=== PATIENT | male | born 1960 | race Caucasian/White ===

== ENCOUNTER 2017-05-11 02:00 | Inpatient (IN) | payer OTHER ==
[2017-05-11] MEDS: SOD CHLORIDE 0.9% 1,000 ML IV (03:29)
[2017-05-11] MEDS ORDERED: HYDROmorphONE 0.5 MG/0.5 ML SYG IV (03:30)
[2017-05-11] MEDS ORDERED: DOCUSATE SODIUM 100 MG CAP PO (03:30)
[2017-05-11] MEDS ORDERED: BISACODYL (EC) 5 MG TAB PO (03:30)
[2017-05-11] MEDS ORDERED: ONDANSETRON 4 MG INJ IV (03:30)
[2017-05-11] MEDS ORDERED: HYDROCODONE/APAP (5/325) TAB PO (03:30)
[2017-05-11] MEDS ORDERED: ACETAMINOPHEN 325 MG TAB PO (03:30)
[2017-05-11] MEDS ORDERED: HEPARIN 1000 UNITS/ML 10 ML INJ IV (04:00)
[2017-05-11] MEDS: SOD CHLORIDE 0.9% 250 ML IV* (04:35)
[2017-05-11] MEDS: FUROSEMIDE 20 MG INJ IV ×2 (05:00→14:00)
[2017-05-11] MEDS: AL HYDROX/MG HYDROX/SIMETH 30 ML CUP PO (07:35)
[2017-05-11 07:45] LABS: ADD MAN DIFF? NO
[2017-05-11 07:52] LABS: WHITE BLOOD COUNT 6.8 10^3/ul (4.8-10.8)
[2017-05-11 07:52] LABS: BASOPHIL # 0.1 10^3/ul (0.0-0.1); BASOPHILS % 0.9 % (0.0-2.0); EOSINOPHILS # 0.1 10^3/ul (0.0-0.5); EOSINOPHILS % 1.6 % (0.0-7.0); HEMATOCRIT 25.9 % (42.0-52.0); LYMPHOCYTES % 14.6 % (15.0-51.0); MEAN CORPUSCULAR HEMOGLOBIN 24.9 pg (29.0-33.0); MEAN CORPUSCULAR HGB CONC 30.9 g/dl (32.0-37.0); MEAN CORPUSCULAR VOLUME 80.7 fl (82.0-101.0); MEAN PLATELET VOLUME 10.9 fl (7.4-10.4); MONOCYTE # 1.3 10^3/ul (0.3-0.9); MONOCYTES % 18.3 % (0.0-11.0); NEUTROPHIL # 4.4 10^3/ul (1.6-7.5); NUCLEATED RED BLOOD CELLS # 0.3 10^3/ul (0.0-0.0); NUCLEATED RED BLOOD CELLS% 4.8 /100WBC (0.0-0.0); PLATELET COUNT 322 10^3/UL (140-415); RED BLOOD COUNT 3.21 10^6/ul (4.70-6.10); RED CELL DISTRIBUTION WIDTH 16.8 % (11.5-14.5)
[2017-05-11 08:11] LABS: PARTIAL THROMBOPLASTIN TIME 36.2 Sec (25.0-35.0)
[2017-05-11 08:15] LABS: ALANINE AMINOTRANSFERASE 967 IU/L (13-69); ALBUMIN 3.5 g/dl (3.3-4.9); ALBUMIN/GLOBULIN RATIO 1.34; ALKALINE PHOSPHATASE 78 IU/L (42-121); ANION GAP 15 (8-16); ASPARTATE AMINO TRANSFERASE 459 IU/L (15-46); BILIRUBIN,INDIRECT 0.7 mg/dl (0-1.1); BILIRUBIN,TOTAL 0.7 mg/dl (0.2-1.3); BLOOD UREA NITROGEN 25 mg/dl (7-20); CALCIUM 8.3 mg/dl (8.4-10.2); CARBON DIOXIDE 24 mmol/L (21-31); CHLORIDE 106 mmol/L (97-110); GLUCOSE 115 mg/dl (70-220); MAGNESIUM 2.2 mg/dl (1.7-2.5); SODIUM 140 mmol/L (135-144); TOTAL PROTEIN 6.1 g/dl (6.1-8.1)
[2017-05-11] MEDS: MULTIVITAMINS THERAPEUTIC TAB PO (08:53)
[2017-05-11] MEDS: FOLIC ACID 1 MG TAB PO (08:53)
[2017-05-11] MEDS: FERROUS SULFATE (EC) 325 MG TAB PO ×2 (08:53→21:32)
[2017-05-11] MEDS: FAMOTIDINE 20 MG INJ IV ×2 (08:53→21:30)
[2017-05-11] MEDS: HEPARIN 1000 UNITS/ML 10 ML INJ IV (09:49)
[2017-05-11] MEDS: HEPARIN 25000 UNITS/250 ML 250 ML IV ×4 (09:51→23:14)
[2017-05-11 10:14] LABS: IMMEDIATE SPIN CROSSMATCH 1 2
[2017-05-11 10:34] LABS: AMPHETAMINE/METHAMPHETAMINE Negative (NEGATIVE); BARBITURATES Negative (NEGATIVE); BENZODIAZEPINES Negative (NEGATIVE); CANNABINOIDS Negative (NEGATIVE); COCAINE Negative (NEGATIVE); OPIATES Negative (NEGATIVE)
[2017-05-11] MEDS: DIPHENHYDRAMINE 50 MG INJ IV (10:40)
[2017-05-11] MEDS: ACETAMINOPHEN 325 MG TAB PO (10:41)
[2017-05-11] MEDS: LORAZEPAM 2 MG INJ IV (11:26)
[2017-05-11 11:47] LABS: ADD UMIC YES; UR ASCORBIC ACID NEGATIVE (NEGATIVE); UR BILIRUBIN (Dip) NEGATIVE (NEGATIVE); UR BLOOD (Dip) NEGATIVE (NEGATIVE); UR CLARITY CLEAR (CLEAR); UR COLOR YELLOW (YELLOW); UR GLUCOSE (Dip) NEGATIVE (NEGATIVE); UR KETONES (Dip) NEGATIVE (NEGATIVE); UR LEUKOCYTE ESTERASE (Dip) NEGATIVE Leu/ul (NEGATIVE); UR NITRITE (Dip) NEGATIVE (NEGATIVE); UR RBC 0 /HPF (0-5); UR TOTAL PROTEIN (Dip) 1+ mg/dl (NEGATIVE); UR UROBILINOGEN (Dip) 2+ mg/dL (NEGATIVE); UR WBC 0 /HPF (0-5)
[2017-05-11 13:28] LABS: FERRITIN 15.5 ng/ml (11.1-264.0)
[2017-05-11] MEDS ORDERED: HALOPERIDOL 1 MG TAB PO (13:30)
[2017-05-11] MEDS: HALOPERIDOL 5 MG INJ IV (13:45)
[2017-05-11] MEDS ORDERED: FUROSEMIDE 40 MG INJ IV (14:00)
[2017-05-11] MEDS ORDERED: HALOPERIDOL 2 MG TAB PO (15:30)
[2017-05-11 15:50] LABS: INR 1.81; PROTIME 21.4 Sec (11.9-14.9); PT RATIO 1.7
[2017-05-11] MEDS ORDERED: SOD FERRIC GLUC COMPLX 125 MG in SOD CHLORIDE 0.9% 100 ML IVPB (17:00)
[2017-05-11] MEDS: WARFARIN 10 MG TAB GTB ×2 (17:00→21:32)
[2017-05-11 17:24] LABS: AADO2 Arterial 28.9 mmHg (7.0-24.0); Allen Test ACCEPTAB; Arterial Base Excess -2.6 mmol/L (-3.0-3); Arterial Blood Gas Oxygen Sat 95.3 mmHG (95.0-98.0); Arterial COHb 0.5 % (0.0-3.0); Arterial Fraction of Oxyhgb 94.5 % (93.0-99.0); Arterial HCO3 21.4 mmol/L (22.0-26.0); Arterial MetHb 0.3 % (0.0-1.5); Arterial Total Hemglobin 9.5 g/dl (12.0-18.0); Arterial pCO2 33.7 mmhg (35-45); MODE ROOM AIR; Site Right Radial
[2017-05-11 17:35] LABS: INR 1.75; PROTIME 20.8 Sec (11.9-14.9); PT RATIO 1.6
[2017-05-11 17:42] LABS: AMMONIA 34 umol/l (9-30)
[2017-05-11 17:55] LABS: PARTIAL THROMBOPLASTIN TIME 169.5 Sec (25.0-35.0)
[2017-05-11] MEDS: ZOLPIDEM 5 MG TAB PO (22:16)
[2017-05-11 23:22] LABS: PARTIAL THROMBOPLASTIN TIME 69.7 Sec (25.0-35.0)
[2017-05-12 07:27] LABS: ADD MAN DIFF? NO
[2017-05-12 07:42] LABS: BASOPHIL # 0.1 10^3/ul (0.0-0.1); EOSINOPHILS # 0.1 10^3/ul (0.0-0.5); EOSINOPHILS % 0.9 % (0.0-7.0); HEMATOCRIT 26.2 % (42.0-52.0); HEMOGLOBIN 8.1 g/dl (14.0-18.0); LYMPHOCYTES # 0.8 10^3/ul (0.8-2.9); LYMPHOCYTES % 9.3 % (15.0-51.0); MEAN CORPUSCULAR HEMOGLOBIN 24.5 pg (29.0-33.0); MEAN CORPUSCULAR HGB CONC 30.9 g/dl (32.0-37.0); MEAN CORPUSCULAR VOLUME 79.4 fl (82.0-101.0); MEAN PLATELET VOLUME 11.4 fl (7.4-10.4); MONOCYTE # 1.3 10^3/ul (0.3-0.9); MONOCYTES % 15.8 % (0.0-11.0); NEUTROPHIL # 5.9 10^3/ul (1.6-7.5); NEUTROPHILS % 72.4 % (39.0-77.0); NUCLEATED RED BLOOD CELLS # 0.5 10^3/ul (0.0-0.0); NUCLEATED RED BLOOD CELLS% 6.4 /100WBC (0.0-0.0); PLATELET COUNT 323 10^3/UL (140-415); RED CELL DISTRIBUTION WIDTH 17.3 % (11.5-14.5)
[2017-05-12 07:42] LABS: WHITE BLOOD COUNT 8.1 10^3/ul (4.8-10.8)
[2017-05-12 08:00] LABS: ALBUMIN 3.3 g/dl (3.3-4.9); ALBUMIN/GLOBULIN RATIO 1.22; ALKALINE PHOSPHATASE 77 IU/L (42-121); ANION GAP 17 (8-16); BILIRUBIN,INDIRECT 0.6 mg/dl (0-1.1); BILIRUBIN,TOTAL 0.6 mg/dl (0.2-1.3); BLOOD UREA NITROGEN 28 mg/dl (7-20); CALCIUM 8.1 mg/dl (8.4-10.2); CARBON DIOXIDE 22 mmol/L (21-31); CHLORIDE 105 mmol/L (97-110); CREATININE 1.15 mg/dl (0.61-1.24); GLUCOSE 147 mg/dl (70-220); INR 1.93; POTASSIUM 5.4 mmol/L (3.5-5.1); PROTIME 22.5 Sec (11.9-14.9); PT RATIO 1.8; SODIUM 139 mmol/L (135-144)
[2017-05-12 08:08] LABS: ALANINE AMINOTRANSFERASE 1540 IU/L (13-69)
[2017-05-12 08:12] LABS: ASPARTATE AMINO TRANSFERASE 1285 IU/L (15-46)
[2017-05-12 08:30] LABS: PARTIAL THROMBOPLASTIN TIME 75.7 Sec (25.0-35.0)
[2017-05-12] MEDS: FERROUS SULFATE (EC) 325 MG TAB PO ×2 (09:40→20:34)
[2017-05-12] MEDS: FUROSEMIDE 40 MG TAB PO (09:40)
[2017-05-12] MEDS: MULTIVITAMINS THERAPEUTIC TAB PO (09:40)
[2017-05-12] MEDS: LISINOPRIL 5 MG TAB PO (09:41)
[2017-05-12] MEDS: FAMOTIDINE 20 MG INJ IV ×2 (09:41→20:34)
[2017-05-12] MEDS: FOLIC ACID 1 MG TAB PO (09:41)
[2017-05-12] MEDS: ENOXAPARIN 100 MG/ML SYG SC ×2 (09:48→20:39)
[2017-05-12 13:10] LABS: ACETAMINOPHEN < 10.0 ug/ml (10.0-30.0)
[2017-05-12 15:08] LABS: HEPATITIS B SURFACE ANTIGEN NEGATIVE (NEGATIVE)
[2017-05-12] MEDS ORDERED: EPOETIN 4000 UNITS/ML (NON ESRD/NON ONCOLOGY) SC (17:00)
[2017-05-13] MEDS: AL HYDROX/MG HYDROX/SIMETH 30 ML CUP PO ×2 (02:59→22:52)
[2017-05-13 07:33] LABS: ADD MAN DIFF? NO
[2017-05-13 07:41] LABS: WHITE BLOOD COUNT 9.5 10^3/ul (4.8-10.8)
[2017-05-13 07:41] LABS: ABNORMAL IP MESSAGE 1; BASOPHIL # 0.1 10^3/ul (0.0-0.1); BASOPHILS % 1.4 % (0.0-2.0); EOSINOPHILS # 0.2 10^3/ul (0.0-0.5); EOSINOPHILS % 2.1 % (0.0-7.0); HEMATOCRIT 29.3 % (42.0-52.0); HEMOGLOBIN 8.9 g/dl (14.0-18.0); LYMPHOCYTES # 1.6 10^3/ul (0.8-2.9); LYMPHOCYTES % 16.8 % (15.0-51.0); MEAN CORPUSCULAR HEMOGLOBIN 24.5 pg (29.0-33.0); MEAN CORPUSCULAR HGB CONC 30.4 g/dl (32.0-37.0); MEAN CORPUSCULAR VOLUME 80.7 fl (82.0-101.0); MEAN PLATELET VOLUME 11.7 fl (7.4-10.4); MONOCYTE # 1.7 10^3/ul (0.3-0.9); MONOCYTES % 17.4 % (0.0-11.0); NEUTROPHIL # 5.9 10^3/ul (1.6-7.5); NEUTROPHILS % 62.1 % (39.0-77.0); NUCLEATED RED BLOOD CELLS # 0.3 10^3/ul (0.0-0.0); NUCLEATED RED BLOOD CELLS% 3.5 /100WBC (0.0-0.0); PLATELET COUNT 361 10^3/UL (140-415); POSITIVE DIFF @See below; RED BLOOD COUNT 3.63 10^6/ul (4.70-6.10); RED CELL DISTRIBUTION WIDTH 18.2 % (11.5-14.5)
[2017-05-13 07:56] LABS: CREATINE KINASE 65 IU/L (23-200)
[2017-05-13 08:04] LABS: INR 1.84; PROTIME 21.7 Sec (11.9-14.9); PT RATIO 1.7
[2017-05-13 08:06] LABS: ALBUMIN 3.4 g/dl (3.3-4.9); ALBUMIN/GLOBULIN RATIO 1.17; ALKALINE PHOSPHATASE 86 IU/L (42-121); ANION GAP 17 (8-16); BILIRUBIN,INDIRECT 0.4 mg/dl (0-1.1); BILIRUBIN,TOTAL 0.4 mg/dl (0.2-1.3); BLOOD UREA NITROGEN 36 mg/dl (7-20); CALCIUM 8.7 mg/dl (8.4-10.2); CARBON DIOXIDE 26 mmol/L (21-31); CHLORIDE 101 mmol/L (97-110); CREATININE 1.42 mg/dl (0.61-1.24); GLUCOSE 115 mg/dl (70-220); SODIUM 138 mmol/L (135-144); TOTAL PROTEIN 6.3 g/dl (6.1-8.1)
[2017-05-13 08:20] LABS: ALANINE AMINOTRANSFERASE 1679 IU/L (13-69); ASPARTATE AMINO TRANSFERASE 985 IU/L (15-46); POTASSIUM 6.2 mmol/L (3.5-5.1)
[2017-05-13 08:46] LABS: LACTATE DEHYDROGENASE 1968 IU/L (313-618)
[2017-05-13] MEDS: NA POLYST SULFON 15 GM/60 ML BTL PO (09:18)
[2017-05-13] MEDS: FAMOTIDINE 20 MG INJ IV ×2 (09:19→20:49)
[2017-05-13] MEDS: MULTIVITAMINS THERAPEUTIC TAB PO (09:19)
[2017-05-13] MEDS: FOLIC ACID 1 MG TAB PO (09:19)
[2017-05-13] MEDS: FERROUS SULFATE (EC) 325 MG TAB PO ×2 (09:23→20:49)
[2017-05-13] MEDS: ENOXAPARIN 100 MG/ML SYG SC ×2 (09:39→21:07)
[2017-05-13 12:32] LABS: POTASSIUM 5.2 mmol/L (3.5-5.1)
[2017-05-13 15:47] LABS: SMOOTH MUSCLE AB SCREEN NEGATIVE (NEGATIVE)
[2017-05-13 16:05] LABS: SODIUM,URINE RANDOM 23 mmol/L (30-90)
[2017-05-13 16:09] LABS: CREATININE,URINE RANDOM 132.75 mg/dl (20-370)
[2017-05-13] MEDS: WARFARIN 10 MG TAB GTB (17:20)
[2017-05-14] MEDS: traZODone 50 MG TAB PO ×2 (02:09→21:41)
[2017-05-14] MEDS: ALBUTEROL 0.083% (NEB) 2.5 MG/3 ML AMP HHN (02:34)
[2017-05-14] MEDS: FAMOTIDINE 20 MG INJ IV ×2 (08:51→20:12)
[2017-05-14] MEDS: FOLIC ACID 1 MG TAB PO (08:52)
[2017-05-14] MEDS: MULTIVITAMINS THERAPEUTIC TAB PO (08:52)
[2017-05-14] MEDS: FERROUS SULFATE (EC) 325 MG TAB PO ×2 (08:52→20:11)
[2017-05-14 09:00] LABS: ADD MAN DIFF? NO
[2017-05-14 09:02] LABS: BASOPHIL # 0.1 10^3/ul (0.0-0.1); BASOPHILS % 0.8 % (0.0-2.0); EOSINOPHILS # 0.1 10^3/ul (0.0-0.5); EOSINOPHILS % 1.6 % (0.0-7.0); HEMATOCRIT 27.5 % (42.0-52.0); HEMOGLOBIN 8.5 g/dl (14.0-18.0); LYMPHOCYTES # 1.2 10^3/ul (0.8-2.9); MEAN CORPUSCULAR HEMOGLOBIN 24.9 pg (29.0-33.0); MEAN CORPUSCULAR HGB CONC 30.9 g/dl (32.0-37.0); MEAN CORPUSCULAR VOLUME 80.6 fl (82.0-101.0); MEAN PLATELET VOLUME 11.6 fl (7.4-10.4); MONOCYTE # 1.5 10^3/ul (0.3-0.9); MONOCYTES % 16.4 % (0.0-11.0); NEUTROPHILS % 67.7 % (39.0-77.0); NUCLEATED RED BLOOD CELLS # 0.1 10^3/ul (0.0-0.0); PLATELET COUNT 289 10^3/UL (140-415); RED BLOOD COUNT 3.41 10^6/ul (4.70-6.10); RED CELL DISTRIBUTION WIDTH 18.4 % (11.5-14.5)
[2017-05-14 09:02] LABS: WHITE BLOOD COUNT 8.8 10^3/ul (4.8-10.8)
[2017-05-14] MEDS: ENOXAPARIN 100 MG/ML SYG SC ×2 (09:07→20:13)
[2017-05-14 09:22] LABS: ALBUMIN 3.3 g/dl (3.3-4.9); ALBUMIN/GLOBULIN RATIO 1.32; ALKALINE PHOSPHATASE 77 IU/L (42-121); ANION GAP 16 (8-16); ASPARTATE AMINO TRANSFERASE 554 IU/L (15-46); BILIRUBIN,INDIRECT 0.3 mg/dl (0-1.1); BILIRUBIN,TOTAL 0.3 mg/dl (0.2-1.3); BLOOD UREA NITROGEN 27 mg/dl (7-20); CALCIUM 8.3 mg/dl (8.4-10.2); CARBON DIOXIDE 25 mmol/L (21-31); CHLORIDE 102 mmol/L (97-110); CREATININE 0.95 mg/dl (0.61-1.24); GLUCOSE 102 mg/dl (70-220); POTASSIUM 5.2 mmol/L (3.5-5.1); SODIUM 138 mmol/L (135-144); TOTAL PROTEIN 5.8 g/dl (6.1-8.1)
[2017-05-14 09:31] LABS: B-TYPE NATRIURETIC PEPTIDE 3350 PG/ML (0-125)
[2017-05-14 09:34] LABS: ALANINE AMINOTRANSFERASE 1259 IU/L (13-69); INR 1.81; PROTIME 21.4 Sec (11.9-14.9); PT RATIO 1.7
[2017-05-14] MEDS: FUROSEMIDE 40 MG TAB PO (12:53)
[2017-05-14] MEDS: WARFARIN 10 MG TAB GTB (18:07)
[2017-05-14] MEDS: AL HYDROX/MG HYDROX/SIMETH 30 ML CUP PO (20:23)
[2017-05-14] MEDS ORDERED: oxyCODONE 5 MG TAB PO (22:30)
[2017-05-14] MEDS ORDERED: IBUPROFEN 200 MG TAB PO (22:30)
[2017-05-14] MEDS: ACETAMINOPHEN 325 MG TAB PO (22:35)
[2017-05-14] MEDS ORDERED: IBUPROFEN 400 MG TAB PO (23:23)
[2017-05-15] MEDS: IBUPROFEN 400 MG TAB PO (00:19)
[2017-05-15] MEDS ORDERED: oxyCODONE 5 MG TAB PO (00:30)
[2017-05-15 07:26] LABS: ADD MAN DIFF? NO
[2017-05-15 07:28] LABS: ABNORMAL IP MESSAGE 1; BASOPHIL # 0.1 10^3/ul (0.0-0.1); BASOPHILS % 1.1 % (0.0-2.0); EOSINOPHILS # 0.2 10^3/ul (0.0-0.5); HEMATOCRIT 27.2 % (42.0-52.0); HEMOGLOBIN 8.5 g/dl (14.0-18.0); LYMPHOCYTES # 1.4 10^3/ul (0.8-2.9); LYMPHOCYTES % 17.6 % (15.0-51.0); MEAN CORPUSCULAR HGB CONC 31.3 g/dl (32.0-37.0); MEAN PLATELET VOLUME 11.3 fl (7.4-10.4); MONOCYTE # 1.6 10^3/ul (0.3-0.9); MONOCYTES % 19.9 % (0.0-11.0); NEUTROPHIL # 4.7 10^3/ul (1.6-7.5); NEUTROPHILS % 59.1 % (39.0-77.0); NUCLEATED RED BLOOD CELLS # 0.1 10^3/ul (0.0-0.0); NUCLEATED RED BLOOD CELLS% 1.6 /100WBC (0.0-0.0); PLATELET COUNT 300 10^3/UL (140-415); POSITIVE DIFF @See below; RED CELL DISTRIBUTION WIDTH 18.7 % (11.5-14.5)
[2017-05-15 07:28] LABS: WHITE BLOOD COUNT 7.9 10^3/ul (4.8-10.8)
[2017-05-15 07:48] LABS: INR 2.17; PROTIME 24.7 Sec (11.9-14.9); PT RATIO 1.9
[2017-05-15 08:02] LABS: ALBUMIN 3.3 g/dl (3.3-4.9); ALBUMIN/GLOBULIN RATIO 1.03; ALKALINE PHOSPHATASE 92 IU/L (42-121); ANION GAP 15 (8-16); ASPARTATE AMINO TRANSFERASE 409 IU/L (15-46); BILIRUBIN,INDIRECT 0.2 mg/dl (0-1.1); BILIRUBIN,TOTAL 0.2 mg/dl (0.2-1.3); BLOOD UREA NITROGEN 28 mg/dl (7-20); CALCIUM 8.4 mg/dl (8.4-10.2); CARBON DIOXIDE 23 mmol/L (21-31); CHLORIDE 103 mmol/L (97-110); CREATININE 1.11 mg/dl (0.61-1.24); GLUCOSE 115 mg/dl (70-220); SODIUM 136 mmol/L (135-144); TOTAL PROTEIN 6.5 g/dl (6.1-8.1)
[2017-05-15 08:13] LABS: ALANINE AMINOTRANSFERASE 1071 IU/L (13-69)
[2017-05-15] MEDS: FAMOTIDINE 20 MG INJ IV (08:35)
[2017-05-15] MEDS: FOLIC ACID 1 MG TAB PO (08:35)
[2017-05-15] MEDS: FERROUS SULFATE (EC) 325 MG TAB PO (08:35)
[2017-05-15] MEDS: MULTIVITAMINS THERAPEUTIC TAB PO (08:35)
[2017-05-15] MEDS: FUROSEMIDE 40 MG TAB PO (08:36)
[2017-05-15] MEDS: ENOXAPARIN 100 MG/ML SYG SC (08:43)
[2017-05-15 19:25] LABS: ANA SCREEN POSITIVE (NEGATIVE)
[2017-05-16 14:38] LABS: HAPTOGLOBIN 157 mg/dL (43-212)
== END 2017-05-15 15:46 | disposition home or self-care (01) | DRG 299 ==
LOC: TEL 02:00
PROVIDERS: Hospitalist
DX: I82.4Z2 Acute embolism and thrombosis of unspecified deep veins of left distal lower extremity (principal); I26.99 Other pulmonary embolism without acute cor pulmonale; G92 Toxic encephalopathy; I24.0 Acute coronary thrombosis not resulting in myocardial infarction; N17.9 Acute kidney failure, unspecified; D68.59 Other primary thrombophilia; K80.10 Calculus of gallbladder with chronic cholecystitis without obstruction; E66.01 Morbid (severe) obesity due to excess calories; Z68.39 Body mass index [BMI] 39.0-39.9, adult; I50.9 Heart failure, unspecified; Z91.14 Patient's other noncompliance with medication regimen; D64.9 Anemia, unspecified; K76.0 Fatty (change of) liver, not elsewhere classified; R45.1 Restlessness and agitation; T42.4X5A Adverse effect of benzodiazepines, initial encounter; Y92.239 Unspecified place in hospital as the place of occurrence of the external cause
CPT/HCPCS: 36430; 36600; 70450; 76705; 78226; 80053; 80306; 80307; 81001; 82140; 82550; 82728; 82787; 82803; 83010; 83615; 83735; 83880; 84132; 84155; 84300; 85025; 85610; 85730; 86038; 86255; 86376; 86644; 86709; 86850; 86900; 86901; 86920; 87081; 87340; 87522; 93005; 93306; 94664; 97161; 97165; 97535